=== PATIENT | male | born 1980 | race Caucasian/White ===

== ENCOUNTER 2024-02-20 16:21 | Emergency (ER) | payer BC, SELFPAY ==
[2024-02-20 16:40] VITALS: BP 151/89; PULSE 83; RESP 18; TEMP 37; O2SAT 99; BMI 29.1
--- NOTE | 2024-02-20 16:58 | XR_ITS ---
PROCEDURE INFORMATION: Exam: XR Left Foot Exam date and time: 02/20/2024 4:54 PM Age: 44 years old Clinical indication: Swelling, leg or foot; Additional info: Swollen TECHNIQUE: Imaging protocol: Radiologic exam of the left foot. Views: 3 or more views. COMPARISON: No relevant prior studies available. FINDINGS: Bones/joints: There is no evidence of acute fracture or dislocation. Joint spaces appear preserved. Calcaneal spurs are demonstrated at the origin of the plantar fascia. Mild osteoarthritic degenerative changes involve the intertarsal joints, the 1st MTP joint and the tibiotalar joint. Soft tissues: No significant soft tissue edema. No subcutaneous emphysema or radiopaque foreign bodies. IMPRESSION: 1. No acute posttraumatic osseous injury. 2. Multifocal mild osteoarthritic degenerative changes. 3. Calcaneal spurring.
--- NOTE | 2024-02-20 17:53 | ED_ITS ---
Discharge Plan Disposition Patient Disposition: Home, Self-Care Condition: Good Prescriptions Prescriptions: New ibuprofen 800 mg tablet 800 mg PO TID PRN (Reason: pain) Qty: 30 0RF Referrals Follow up/Referrals: Provider,Referral, MD [Primary Care Provider] - See instructions Activity Restrictions/Add. Instructions Additional Instructions/Restrictions: Follow up with primary care provider. If symptoms persist or worsen return to clinic or PCP. Clinical Impressions Clinical Impression: Osteoarthritis of foot, left Qualifiers: Osteoarthritis type: unspecified Qualified Code(s): M19.072 - Primary osteoarthritis, left ankle and foot Instructions Patient Instructions: DI for Foot Pain, How To Perform RICE (Rest, Ice, Compress, Elevate) Discharge ED Provider: Leah Cosme [facility] General Stated complaint: left foot pain, no accident Mode of Arrival: Ambulatory Source of Information: Patient Limitations: No Limitations Time Seen by Provider: 02/20/24 17:05 Description of Symptoms (Recalled from Triage Doc. by RN): Pt's symptoms are left foot pain and swollen since 02/16/2024. He stated that he wore tight shoes to try and lossen them. He stated that the swelling never went away and pain has gotten worse. HEENT Symptoms (Recalled from RN notes): No Resp Symptoms (Recalled from RN notes): No Skin Symptoms (Recalled from RN notes): No MS Symptoms (Recalled from RN notes): Yes Functional Status (Recalled from RN notes): n/a History of Present Illness Provider Complaint: Pt's symptoms are left foot pain and swollen since 02/16/2024. He stated that he wore tight shoes to try and loosen them. He stated that the swelling never went away and pain has gotten worse. Related Data Previous Rx's Medication Instructions Recorded ibuprofen 800 mg tablet 800 mg PO TID PRN pain #30 tabs 02/20/24 Allergies Allergy/AdvReac Type Severity Reaction Status Date / Time No Known Allergies Allergy Verified 02/20/24 17:10 Worker's Comp Is this a Worker's Comp case?: No [facility] Disclaimer: The information contained in this section may have been updated after the patient was seen, as this information can be updated by other users. Social History Smoking Status: Never smoker alcohol intake: current current occupational status: unemployed Travel in the last 8 weeks: Inside the [place] ROS Obtained: Yes All systems reviewed & no additional complaints except as documented Constitutional Constitutional: Reports system reviewed and no additional complaints, except as documented Eyes Eyes: Reports system reviewed and no additional complaints, except as documented ENT Ears, Nose, Mouth, and Throat: Reports system reviewed and no additional complaints, except as documented Cardiovascular Cardiovascular: Reports system reviewed and no additional complaints, except as documented Respiratory Respiratory: Reports system reviewed and no additional complaints, except as documented Gastrointestinal Gastrointestingal: Reports system reviewed and no additional complaints, except as documented Genitourinary Male Genitourinary: Reports system reviewed and no additional complaints, except as documented Musculoskeletal Musculoskeletal: Reports system reviewed and no additional complaints, except as documented, Reports abnormal gait, Reports arthralgias and Reports joint swelling Integumentary/Breasts Skin/Breast: Reports system reviewed and no additional complaints, except as documented Neurologic Neurologic: Reports system reviewed and no additional complaints, except as documented and Reports abnormal gait Endocrine Endocrine: Reports system reviewed and no additional complaints, except as documented Hematologic/Lymphatic Henatologic/Lymphatic: Reports system reviewed and no additional complaints, except as documented Allergic/Immunologic Allergic/Immunologic: Reports system reviewed and no additional complaints, except as documented Physical Exam General General appearance: alert and in no apparent distress Head Head exam: atraumatic and normocephalic Eye Eye exam: Present normal appearance ENT ENT exam: Present normal exam and normal oropharynx Neck Neck exam: Present normal inspection Chest Chest inspection: Present normal inspection and symmetric chest wall rise Respiratory Respiratory exam: Present normal lung sounds bilaterally Cardiovascular Cardiovascular exam: Present regular rate, normal rhythm and normal heart sounds Abdominal Exam Abdominal exam: Present normal bowel sounds Extremities Exam Extremities exam: Present tenderness, normal capillary refill, edema and joint swelling Expanded Lower Extremity Exam Left: Hip/Pelvis exam: Present normal inspection Upper leg exam: Present normal inspection Knee exam: Present normal inspection Lower leg exam: Present normal inspection Ankle exam: Present swelling Foot/toe exam: Present tenderness, swelling and calcaneal tenderness Neurovascular/Tendon exam: Present normal capillary refill Gait: observed and limited by pain Back Exam Back exam: Present normal inspection Neurological Exam Neurological exam: Present alert and oriented X3 Psychiatric Psychiatric exam: Present normal affect and normal mood Skin Skin exam: Present warm, dry and intact Lymphatic Lymphatic Findings: no adenopathy Medical Decision Making Mitch Inquiry Pt receiving controlled substance: No Mitch was queried for this patient: No Vital Signs: 02/20/24 16:40 Temperature 98.6 F Temperature Source Oral Pulse Rate [Right Radial] 83 Respiratory Rate 18 Blood Pressure [Right Arm] 151/89 H Blood Pressure Mean [Right Arm] 109 Blood Pressure Source [Right Arm] Automatic Cuff Blood Pressure Position [Right Arm] Sitting 02 Sat by Pulse Oximetry 99 Oxygen Delivery Method Room Air Orders (Tests/Meds): ORDERS Category Date Time Status Foot XR left minimum 3 views [XR foot LT min 3V] Stat Exams 02/20/24 16:58 Completed Radiology Data #1: Image(s): Foot/Toes Image Reviewed: Yes I reviewed the patient's radiology results and Yes I have reviewed radiologist's interpretation FINDINGS: Bones/joints: There is no evidence of acute fracture or dislocation. Joint spaces appear preserved. Calcaneal spurs are demonstrated at the origin of the plantar fascia. Mild osteoarthritic degenerative changes involve the intertarsal joints, the 1st MTP joint and the tibiotalar joint. Soft tissues: No significant soft tissue edema. No subcutaneous emphysema or radiopaque foreign bodies. IMPRESSION: 1. No acute posttraumatic osseous injury. 2. Multifocal mild osteoarthritic degenerative changes. 3. Calcaneal spurring.
[2024-02-20 18:16] VITALS: BP 151/89; PULSE 83; RESP 18; TEMP 36.7; O2SAT 99
== END 2024-02-20 18:16 | disposition home or self-care (01) ==
PROVIDERS: Emergency Provider Nurse Practitioner Family
DX: M19.072 Primary osteoarthritis, left ankle and foot (principal); M79.672 Pain in left foot
CPT/HCPCS: 73630; 99204; 99212; G0463

== ENCOUNTER 2024-05-08 12:49 | Outpatient (RCR) | payer BC, SELFPAY | END 2024-05-08 12:50 | disposition home or self-care (01) | LOC: OT 12:49 | PROVIDERS: Visit Provider Physical Medicine & Rehabilitation | DX: R10.2 Pelvic and perineal pain (principal); S32.89XA Fracture of other parts of pelvis, initial encounter for closed fracture; S32.401A Unspecified fracture of right acetabulum, initial encounter for closed fracture | CPT/HCPCS: 97165 ==

== ENCOUNTER 2024-05-11 13:49 | Emergency (ER) | payer BC, SELFPAY ==
[2024-05-11] VITALS (8 sets, daily range): BP systolic 121–144; BP diastolic 78–97; PULSE 70–95; RESP 16–18; TEMP 36.6–36.8; O2SAT 98–100; BMI 34.9
--- NOTE | 2024-05-11 14:25 | PC.NURSE ---
DR ALDRICH AT BEDSIDE
--- NOTE | 2024-05-11 15:08 | XR_ITS ---
FINAL REPORT CLINICAL HISTORY: Right lower leg pain COMPARISON: None FINDINGS: Two views of the right tibia/fibula were obtained. There is no acute fracture or dislocation. Mild degenerative changes are noted of the ankle. There is no soft tissue abnormality. IMPRESSION: No acute bony abnormality. Reviewed, Interpreted and Dictated by Benjamin Cisneros III, MD Transcribed by Maci Guerra Authenticated and [facility]
--- NOTE | 2024-05-11 15:08 | XR_ITS ---
FINAL REPORT CLINICAL HISTORY: Right knee pain COMPARISON: none FINDINGS: Two views of the right knee were obtained. There is no evidence of fracture or dislocation. The bony alignment is normal. The joint spaces are preserved. There is no evidence of joint effusion. No localized soft tissue abnormality is identified. IMPRESSION: No acute abnormality identified. Reviewed, Interpreted and Dictated by Benjamin Cisneros III, MD Transcribed by Maci Guerra Authenticated and [facility]
--- NOTE | 2024-05-11 15:08 | XR_ITS ---
FINAL REPORT CLINICAL HISTORY: fall/pain COMPARISON: None FINDINGS: Two views of the right femur were obtained. There is no acute fracture or dislocation. The joint spaces are well preserved. There is no acute soft tissue abnormality. IMPRESSION: No acute abnormality identified. Reviewed, Interpreted and Dictated by Benjamin Cisneros III, MD Transcribed by Maci Guerra Authenticated and [facility]
--- NOTE | 2024-05-11 15:08 | XR_ITS ---
FINAL REPORT CLINICAL HISTORY: fall/ right hip pain COMPARISON: None FINDINGS: RIGHT HIP Two views of the right hip with an AP view of the pelvis demonstrate no acute fracture or dislocation. There are postoperative changes in the right acetabulum. The joint spaces appear normal. The visualized bony structures are well aligned. No soft tissue abnormality is seen. IMPRESSION: No acute bony abnormality. Reviewed, Interpreted and Dictated by Benjamin Cisneros III, MD Transcribed by Maci Guerra Authenticated and [facility]
--- NOTE | 2024-05-11 15:08 | XR_ITS ---
FINAL REPORT CLINICAL HISTORY: Right ankle pain COMPARISON: None FINDINGS: Two views of the right ankle were obtained. There is no acute fracture or dislocation. There is mild degenerative change. Soft tissue swelling is noted. IMPRESSION: Soft tissue swelling without acute bony abnormality. Reviewed, Interpreted and Dictated by Benjamin Cisneros III, MD Transcribed by Maci Guerra Authenticated and [facility]
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
--- NOTE | 2024-05-11 15:13 | PC.NURSE ---
XR AT BEDSIDE
[2024-05-11] MEDS: OXYCODONE 5MG IMMEDIATE RELEASE TABLET 5 MG PO (15:19)
[2024-05-11] MEDS: METHOCARBAMOL 500MG TABLET 500 MG PO (15:19)
== END 2024-05-11 17:33 | disposition home or self-care (01) ==
PROVIDERS: Emergency Provider Emergency Medicine
DX: S70.01XA Contusion of right hip, initial encounter (principal); Z96.641 Presence of right artificial hip joint; W10.8XXA Fall (on) (from) other stairs and steps, initial encounter
CPT/HCPCS: 73502; 73552; 73560; 73590; 73600; 99284

== ENCOUNTER 2024-06-19 10:45 | Outpatient (CLI) | payer BC, SELFPAY ==
[2024-06-19 19:32] LABS: Direct LDL Cholesterol 135.58 mg/dL (100-129)
[2024-06-19 19:38] LABS: Albumin Level 4.4 g/dl (3.5-5.0); Albumin/Globulin Ratio 1.8 (1.1-1.8); Alkaline Phosphatase 62 U/L (38-126); Anion Gap 12.1 mEq/L (5-15); Bilirubin,Total 0.3 mg/dl (0.2-1.3); Blood Urea Nitrogen 13 mg/dl (9-20); Calcium 9.7 mg/dl (8.4-10.2); Carbon Dioxide 24 mmol/L (22.0-30.0); Chloride 108 mmol/L (98-107); Chol/HDL Ratio 7.2 (1-3.5); Cholesterol 223 mg/dl (140-200); Estimated Glomerular Filt Rate 148 ml/min (>60); GFR (African American) 179 ML/MIN (>60); Globulin 2.5 g/dL (1.3-3.2); Glucose 82 mg/dl (74-100); HDL Cholesterol 31 mg/dl (40-60); Potassium 4.1 mmoL/L (3.5-5.1); Sodium 140 mmol/L (136-145); Total Protein,Serum 6.9 g/dl (6.3-8.2); Triglycerides 185 mg/dl (30-150); Uric Acid 6.2 mg/dl (3.5-8.5); VLDL Cholesterol 37 mg/dL (0-40)
[2024-06-19 20:18] LABS: Alanine Aminotransferase 24 U/L (12-78); Aspartate Amino Transferase 25 U/L (17-59)
[2024-06-19 22:06] LABS: HIV (1&2) Antibody Rapid NONREACTIVE (NONREACTIVE)
== END 2024-06-19 23:59 | disposition home or self-care (01) ==
LOC: LAB.DROPOF 06-20 10:45
PROVIDERS: PCP Family Medicine; Visit Provider Family Medicine
DX: Z11.4 Encounter for screening for human immunodeficiency virus [HIV] (principal); R03.0 Elevated blood-pressure reading, without diagnosis of hypertension; Z11.59 Encounter for screening for other viral diseases; M10.9 Gout, unspecified
CPT/HCPCS: 80053; 80061; 84550; 87389; 87522

== ENCOUNTER 2024-08-21 14:00 | Outpatient (RCR) | payer BC, SELFPAY | END 2024-08-21 23:59 | disposition home or self-care (01) | LOC: PT 14:00 | PROVIDERS: Visit Provider Physical Medicine & Rehabilitation | DX: R10.2 Pelvic and perineal pain (principal); S32.401A Unspecified fracture of right acetabulum, initial encounter for closed fracture | CPT/HCPCS: 97110; 97112; 97116; 97163; 97164; 97530 ==

== ENCOUNTER 2024-09-18 12:39 | Outpatient (RCR) | payer MEDICAID, SELFPAY | END 2024-09-18 23:59 | disposition home or self-care (01) | LOC: PT 12:39 | PROVIDERS: Visit Provider Orthopaedic Surgery Orthopaedic Trauma | DX: M25.551 Pain in right hip (principal); S32.45 Transverse fracture of acetabulum; Z98.890 Other specified postprocedural states | CPT/HCPCS: 97163 ==

== ENCOUNTER 2024-10-16 13:00 | Outpatient (RCR) | payer MEDICAID, SELFPAY | END 2024-10-16 23:59 | disposition home or self-care (01) | LOC: PT 13:00 | PROVIDERS: Visit Provider Orthopaedic Surgery Orthopaedic Trauma | DX: Z98.890 Other specified postprocedural states (principal); S32.45 Transverse fracture of acetabulum | CPT/HCPCS: 97110; 97530 ==

== ENCOUNTER 2024-11-19 10:37 | Emergency (ER) | payer MEDICAID, SELFPAY ==
[2024-11-19] VITALS (11 sets, daily range): BP systolic 120–141; BP diastolic 53–82; PULSE 86–111; RESP 17–18; TEMP 30.4–35.6; O2SAT 96–100; BMI 33.2
--- NOTE | 2024-11-19 10:45 | ECG_ITS ---
APPROVED REPORT Exam: Resting ECG HR:86 bpm ECG Measurements Heart Rate 86 AXES LA 130 P 28 QRSd 125 QRS -28 QT 421 T 56 QTc 464 Conclusion SINUS RHYTHM PROBABLE LATERAL MYOCARDIAL INFARCTION , OF INDETERMINATE AGE [35 ms Q WAVE IN I/aVL/V5/V6] ABNORMAL ECG No STEMI Electronically signed by : CYNTHIA CARRANZA, 11/20/2024 03:47:21
[2024-11-19] MEDS: LACTATED RINGERS 1000ML 1,000 ML 999 ML IV ×2 (10:50→11:00)
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
--- NOTE | 2024-11-19 10:51 | CT_ITS ---
FINAL REPORT CLINICAL HISTORY: trauma, critical injury suspected, ams, possible fall? FINDINGS: CTA NECK Thin section axial CT with contrast with multiplanar reconstruction NASCET criteria and technique was utilized during interpretation. Aortic arch: Arch shows no significant narrowing. Great vessel origins are widely patent . Right carotid: No significant stenosis is seen of the cervical common or internal carotid artery . Left carotid: No significant stenosis is seen of the cervical common or internal carotid artery . Vertebrals: Evaluation of the left vertebral artery is limited by artifact. No significant stenosis is present of the visualized vertebral arteries. IMPRESSION: No significant stenosis or occlusion. Reviewed, Interpreted and Dictated by Rahda Bernal MD Transcribed by Paty Alas Authenticated and [facility]
--- NOTE | 2024-11-19 10:51 | CT_ITS ---
FINAL REPORT TECHNIQUE: Thin section axial images were obtained from skull base to vertex without contrast. Coronal and sagittal reconstruction images were obtained from the axial data. Exam was performed using dose reduction techniques such as automated exposure control, adjustment of the mA and kV according to patient size, and use of iterative reconstruction technique. CLINICAL HISTORY: trauma, critical injury suspected, was outside all night drinking alcohol in a field, ams COMPARISON: None FINDINGS: There is no mass effect or midline shift. There is no hydrocephalus. There is no intracranial hemorrhage. The posterior fossa is without acute abnormality. The basilar cisterns are preserved. The soft tissues are without acute abnormality. No acute osseous abnormality is identified. IMPRESSION: No acute intracranial abnormality. Reviewed, Interpreted and Dictated by Radha Bernal MD Transcribed by Jeanie Canela Authenticated and [facility]
--- NOTE | 2024-11-19 10:51 | CT_ITS ---
FINAL REPORT TECHNIQUE: Thin section axial images were obtained through the abdomen and pelvis after contrast injection per CT angiogram protocol. Multiplanar reconstruction images were obtained from the axial data. This exam was performed with techniques to keep radiation dose as low as reasonably achievable. This includes automated exposure control, adjustment of the MA and KVP, and iterative reconstruction technique. CLINICAL HISTORY: trauma, critical injury suspected FINDINGS: CTA: No abdominal aortic aneurysm or aortic dissection. The celiac axis, superior mesenteric artery, and inferior mesenteric artery are patent without stenosis. The renal arteries are patent. The common iliac arteries and visualized portions of the internal and external iliac arteries are patent. No significant stenosis. NONVASCULAR: The gallbladder is present. The solid abdominal organs are without acute abnormality. Stomach is distended with fluid. The GI tract is without acute abnormality. No lymphadenopathy or free fluid. A Ventura catheter is seen in the urinary bladder. The appendix is normal. No free air is identified. No acute osseous abnormality. IMPRESSION: No evidence of abdominal aortic aneurysm or dissection. No significant stenosis. No acute findings. Reviewed, Interpreted and Dictated by Radha Bernal MD Transcribed by Paty Alas Authenticated and [facility]
--- NOTE | 2024-11-19 10:51 | CT_ITS ---
FINAL REPORT TECHNIQUE: Thin section axial images were obtained through the lumbar spine without contrast. Sagittal and coronal reconstruction images were obtained from the axial data. Exam was performed using dose reduction techniques. This study was performed with techniques to keep radiation doses as low as reasonably achievable (ALARA). Individualized dose reduction techniques using automated exposure control or adjustment of mA and/or kV according to the patient's size were employed. CLINICAL HISTORY: trauma, critical injury suspected, possible fall?, ams COMPARISON: None FINDINGS: There is no acute fracture or acute malalignment of the lumbar spine. Vertebral body height is preserved. There is mild multilevel degenerative disease with disc space narrowing and osteophyte formation. There is no significant central stenosis. Paraspinal soft tissues are within normal limits. There is no paraspinal mass or fluid collection. IMPRESSION: No acute abnormality of the lumbar spine. Mild multilevel degenerative disease. Reviewed, Interpreted and Dictated by Radha Bernal MD Transcribed by Jeanie Canela Authenticated and [facility]
--- NOTE | 2024-11-19 10:51 | CT_ITS ---
FINAL REPORT TECHNIQUE: Axial imaging of the chest is obtained after the administration of contrast. 3-D MIP reformatted images were also obtained and reviewed per PE protocol. CLINICAL HISTORY: trauma, critical injury suspected, ams, possible fall?, hypothermia? FINDINGS: The pulmonary arteries are well filled. There is no evidence of pulmonary embolus. There is no aortic dissection. Heart size is normal. There is no mediastinal, hilar, or axillary lymphadenopathy. The lungs are clear. There is no pleural or pericardial effusion. No acute osseous abnormality. IMPRESSION: No evidence of pulmonary embolism or aortic dissection. Reviewed, Interpreted and Dictated by Radha Bernal MD Transcribed by Paty Alas Authenticated and [facility]
--- NOTE | 2024-11-19 10:51 | CT_ITS ---
FINAL REPORT TECHNIQUE: Axial imaging of the pelvis was obtained without contrast.This study was performed with techniques to keep radiation doses as low as reasonably achievable, (ALARA). Individualized dose reduction technique using automated exposure control or adjustment of mA and/or kV according to the patient's size were employed. CLINICAL HISTORY: trauma, critical injury suspected, ams, possible fall? COMPARISON: 05/11/2024 FINDINGS: There is no acute fracture or dislocation. There are postoperative changes of ORIF of the acetabulum. There is incomplete bony union of the acetabular fracture. Degenerative joint disease is seen of the right hip. Femoral heads are located bilaterally. Soft tissues demonstrate no acute abnormality. Sacral ala are intact. IMPRESSION: Postoperative changes of ORIF of the right acetabulum without acute bony abnormality. Reviewed, Interpreted and Dictated by Radha Bernal MD Transcribed by Paty Alas Authenticated and [facility]
--- NOTE | 2024-11-19 10:51 | CT_ITS ---
FINAL REPORT TECHNIQUE: Thin section axial images are obtained through the brain after intravenous contrast injection. Multiplanar reconstructions were obtained from the axial data. Exam was performed using dose reduction techniques such as automated exposure control, adjustment of the mA and kV according to patient size, and use of iterative reconstruction technique. CLINICAL HISTORY: trauma, critical injury suspected, ams, possible fall? FINDINGS: Exam is limited by motion artifact and poor contrast bolus. The intracerebral portions of the carotid arteries are patent. The anterior and middle cerebral arteries are patent. The posterior cerebral arteries arise from the basilar artery. They are patent. [place] is intact. The basilar artery is patent. The vertebral arteries are patent. There is no significant stenosis, aneurysm, or AVM. IMPRESSION: Unremarkable CT angiogram of the intracerebral vasculature. Reviewed, Interpreted and Dictated by Radha Bernal MD Transcribed by Paty Alas Authenticated and [facility]
--- NOTE | 2024-11-19 10:51 | CT_ITS ---
FINAL REPORT TECHNIQUE: Thin section axial images were obtained through the thoracic spine without contrast. Sagittal and coronal images were obtained from the axial data. This study was performed with techniques to keep radiation doses as low as reasonably achievable (ALARA). Individualized dose reduction techniques using automated exposure control or adjustment of mA and/or kV according to the patient's size were employed. CLINICAL HISTORY: trauma, critical injury suspected, possible fall?, hypothermia, ams COMPARISON: None FINDINGS: There is no acute fracture of the thoracic spine. There is no malalignment. Mild multilevel degenerative disease is noted with osteophyte formation and multilevel disc space narrowing. No acute paraspinal abnormality is identified. IMPRESSION: No acute osseous abnormality of the thoracic spine. Mild degenerative disc disease. Reviewed, Interpreted and Dictated by Radha Bernal MD Transcribed by Jeanie Canela Authenticated and [facility]
[2024-11-19 11:00] LABS: Basophils # 0.1 K/mm3 (0-0.2); Basophils % 0.5 % (0.1-2.0); Eosinophils % 0.1 % (0.1-12.0); Hematocrit 48.1 % (42.0-52.0); Hemoglobin 15.5 g/dL (14.1-18.0); Lymphocytes # 3.3 K/mm3 (0.7-4.5); Lymphocytes % 28.2 % (10-50); Mean Corpuscular HGB Conc 32.2 g/dL (31.8-35.4); Mean Corpuscular Hemoglobin 31.8 pg (27.0-31.2); Mean Corpuscular Volume 98.8 fl (80-94); Mean Platelet Volume 9.1 fl (7.4-10.4); Monocytes # 1.2 K/mm3 (0.1-1.0); Monocytes % 9.8 % (1.7-9.3); Neutrophils # 6.9 K/mm3 (1.8-7.8); Neutrophils % 58.1 % (37.0-80.0); Platelet Count 358 K/mm3 (142-424); Red Blood Count 4.87 M/mm3 (4.60-6.20); Red Cell Distribution Width 13.6 % (11.5-17.5); White Blood Count 11.9 K/mm3 (4.8-10.8)
[2024-11-19 11:02] LABS: VBG Base Excess -26.5 mmol/L (-2.4-2.3); VBG Oxygen Saturation 77.3 % (50-70); VBG PCO2 39.5 mmol/L (35-51); VBG PO2 66.9 mmol/L (28-40); VBG Total CO2 8.2 mmol/L (23-27)
[2024-11-19 11:02] LABS: Microscopic, Urine URINE MICROSCOPIC (MICROSCOPIC)
[2024-11-19 11:05] LABS: Lactate Venous 18.3 mmol/L (0.4-2.0); VBG PH 6.86 mmol/L (7.31-7.41)
[2024-11-19 11:13] LABS: Activated Partial Thrombo Time 32.3 seconds (22.8-30.6); INR 1.02 (0.9-1.1); Prothrombin Time 11.4 seconds (10.1-12.5)
--- NOTE | 2024-11-19 11:13 | PC.NURSE ---
SEIZURE PADS PLACED ON PT BED AT THIS TIME
[2024-11-19 11:15] LABS: Albumin Level 5.4 g/dl (3.5-5.0); Chloride 97 mmol/L (98-107); Potassium 4.1 mmoL/L (3.5-5.1); Sodium 142 mmol/L (136-145)
[2024-11-19 11:18] LABS: Alanine Aminotransferase 188 U/L (12-78); Albumin/Globulin Ratio 1.9 (1.1-1.8); Alkaline Phosphatase 157 U/L (38-126); Anion Gap 43.1 mEq/L (5-15); Aspartate Amino Transferase 235 U/L (17-59); Bilirubin,Total 0.7 mg/dl (0.2-1.3); Blood Urea Nitrogen 15 mg/dl (9-20); Estimated Glomerular Filt Rate 42 ml/min (>60); GFR (African American) 50 ML/MIN (>60); Globulin 2.8 g/dL (1.3-3.2); Total Protein,Serum 8.2 g/dl (6.3-8.2)
[2024-11-19 11:18] LABS: Appearance,Urine CLEAR (Clear); Bilirubin,Urine Negative (Negative); Blood, Urine LARGE (Negative); Color,Urine YELLOW (Yellow); Glucose,Urine (UA) Negative (Negative); Ketones,Urine 15 (Negative); Leukocyte Esterase,Urine Negative (Negative); Nitrate,Urine Negative (Negative); PH,Urine 5.5 (5.0-8.5); Protein,Urine >=300 (Negative); Urobilinogen,Urine 0.2 EU/dl (0.2)
[2024-11-19 11:19] LABS: Calcium 8.8 mg/dl (8.4-10.2); Glucose 147 mg/dl (74-100)
--- NOTE | 2024-11-19 11:22 | PC.NURSE ---
pt to ct
[2024-11-19 11:23] LABS: Magnesium 2.3 mg/dl (1.6-2.3)
--- NOTE | 2024-11-19 11:23 | HMH.EDGENADL ---
Discharge Plan Disposition Patient Disposition: Xfer Short-Term Hosp Condition: Fair Chief Complaint: Alcohol Prescriptions Prescriptions: No Action sennosides-docusate sodium 8.6-50 mg capsule 1 tab-cap PO BID PRN ibuprofen 600 mg tablet 600 mg PO Q6H PRN trazodone 50 mg tablet 25 mg PO DAILY acetaminophen [Tylenol Extra Strength] 500 mg tablet 1,000 mg PO Q6H PRN oxycodone 5 mg tablet 5 mg PO QHS 15 Days Qty: 15 0RF ibuprofen 800 mg tablet 800 mg PO TID PRN (Reason: pain) Qty: 30 0RF Referrals Follow up/Referrals: Nasir Leon MD [Primary Care Provider] - See instructions Clinical Impressions Clinical Impression: Acidosis, lactic, Hyperphosphatemia, Hypothermia, Alcohol abuse, Head injury, Frostbite, Rhabdomyolysis, TEDDY (acute kidney injury), Transaminitis, Hypocalcemia Print Language Print Language: Tajik Discharge ED Provider: Nevin Dalal General Adult HPI General Chief complaint: Alcohol Stated complaint: poss. 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 Patient reports that he was drinking yesterday/last night and was out in the field when he slipped and fell, hitting his head on a rock. He is not sure if he lost consciousness or not. He was unable to get up on his own and was down in the field all night. It was raining and cold. He has not had a drink of alcohol since last night and does have a history of alcohol withdrawals. Family states that they found him on the field and brought him in for further evaluation and management. They have given him a hot shower at home but the patient complained the water was too hot. They tried to make him drink hot liquids as well, but he was still very cold so they brought him in for evaluation. Patient complains of head pain where he hit his head, but he denies other complaints or concerns at this time. He is alert and oriented x 4 but is very very slow to respond. Related Data Home Medications ?Medication ?Instructions ?Recorded ?Confirmed acetaminophen 500 mg tablet 1,000 mg PO Q6H PRN 05/15/24 06/19/24 (Tylenol Extra Strength) ibuprofen 600 mg tablet 600 mg PO Q6H PRN 05/15/24 06/19/24 sennosides 8.6 mg-docusate sodium 1 tab-cap PO BID PRN 05/15/24 06/19/24 50 mg capsule trazodone 50 mg tablet 25 mg PO DAILY 05/15/24 06/19/24 Previous Rx's ?Medication ?Instructions ?Recorded ibuprofen 800 mg tablet 800 mg PO TID PRN pain #30 tabs 02/20/24 oxycodone 5 mg tablet 5 mg PO QHS pain 15 days #15 tabs 06/22/24 Allergies Allergy/AdvReac Type Severity Reaction Status Date / Time No Known Allergies Allergy Verified 06/19/24 14:07 [facility] Disclaimer: The information contained in this section may have been updated after the patient was seen, as this information can be updated by other users. Medical History Elevated blood pressure reading Gout Fracture of pelvis, closed Fracture acetabulum-closed Osteoarthritis of foot, left Fall Contusion of hip, right Social History Smoking Status: Never smoker alcohol intake: current current occupational status: unemployed Travel in the last 8 weeks: Inside the [place] Have you lived/traveled outside US in past 30 days?: No Contact w/someone who lives/traveled outside US past 30 days?: No Exposure to someone with infectious disease in past 14 days?: No Do you have a fever (greater than 100.4 F or 38 C)?: No Have you tested positive for COVID-19: No Exposed to someone with COVID-19 in past 14 days?: No Do you have a sore throat?: No Do you have a cough?: No Do you have any weakness?: No Do you have any diarrhea?: No Are you experiencing any unusual bleeding?: No Do you have any muscle aches/pain?: No Do you have any abdominal pain?: No Are you experiencing loss of taste or smell?: No ROS Obtained: Yes All systems reviewed & no additional complaints except as documented Physical Exam General General appearance: alert and obese Comment: Ill-appearing, very cold Head Head exam: atraumatic and normocephalic Eye Eye exam: Present normal appearance, PERRL and EOMI ENT ENT exam: Present mucous membranes dry and normal external ear exam Neck Neck exam: Present normal inspection, full ROM and trachea midline; Absent tenderness Chest Chest inspection: Present normal inspection and symmetric chest wall rise; Absent tenderness Respiratory Respiratory exam: Present normal lung sounds bilaterally; Absent respiratory distress, wheezes, stridor or accessory muscle use Cardiovascular Cardiovascular exam: Present regular rate and normal rhythm Abdominal Exam Abdominal exam: Present soft; Absent distention, tenderness or guarding Extremities Exam Extremities exam: Present full ROM and other (Extremely cold hands and feet, especially the feet. The feet are purple and discolored. No blistering noted. He has delayed capillary refill.); Absent tenderness, normal capillary refill or edema Back Exam Back exam: Present normal inspection and full ROM; Absent tenderness Neurological Exam Neurological exam: Present alert, oriented X3, CN II-XII intact and other (Generally weak without focal neurologic deficit); Absent motor sensory deficit Psychiatric Psychiatric exam: Present flat affect Skin Skin exam: Present pallor and other (Cold, pale, peripheral cyanosis) Medical Decision Making Medical Records Medical records reviewed: Yes I reviewed the patient's medical records. Screening: Per USPSTF and CDC recommendations, given the prevalence of disease in our region, it is our hospital?s policy to screen for HIV and viral Hepatitis for all patients aged 18 and over and those with ongoing risk factors. Mitch Inquiry Pt receiving controlled substance: No Vital Signs: 11/19/24 11:21 11/19/24 12:01 11/19/24 12:31 Temperature 86.7 F L 91.2 F L Temperature Source Core Pulse Rate 89 93 H Pulse Rate [Left] 86 Respiratory Rate 17 Blood Pressure 120/53 L 120/55 L Blood Pressure [Right Arm] 126/72 Blood Pressure Mean 80 Blood Pressure Mean [Right Arm] 90 Blood Pressure Source [Right Arm] Automatic Cuff Blood Pressure Position [Right Arm] Sitting 02 Sat by Pulse Oximetry 98 100 98 Oxygen Delivery Method Room Air Room Air 11/19/24 13:00 11/19/24 13:30 Temperature 92.3 F L 93.2 F L Temperature Source Pulse Rate 104 H 97 H Pulse Rate [Left] Respiratory Rate Blood Pressure 125/68 126/71 Blood Pressure [Right Arm] Blood Pressure Mean Blood Pressure Mean [Right Arm] Blood Pressure Source [Right Arm] Blood Pressure Position [Right Arm] 02 Sat by Pulse Oximetry 99 99 Oxygen Delivery Method Room Air Room Air Lab Data Lab results reviewed: Yes I reviewed the patient's lab results. Lab Results 11/19/24 10:45: WBC 11.9 H, RBC 4.87, Hgb 15.5, Hct 48.1, MCV 98.8 H, MCH 31.8 H, MCHC 32.2, RDW 13.6, Plt Count 358, MPV 9.1, Neut % (Auto) 58.1, Lymph % (Auto) 28.2, Clinch % (Auto) 9.8 H, Eos % (Auto) 0.1, Baso % (Auto) 0.5, Neut # (Auto) 6.9, Lymph # (Auto) 3.3, Clinch # (Auto) 1.2 H, Eos # (Auto) 0.0, Baso # (Auto) 0.1, PT 11.4, INR 1.02, APTT 32.3 H, Sodium 142, Potassium 4.1, Chloride 97 L, Carbon Dioxide 6 L*, Anion Gap 43.1 H, BUN 15, Creatinine 1.80 H, Estimated GFR 42 L, Est GFR ( Amer) 50 L, Glucose 147 H, Calcium 8.8, Phosphorus 10.0 H, Magnesium 2.3, Total Bilirubin 0.7, AST 235 H, ALT 188 H, Alkaline Phosphatase 157 H, Total Creatine Kinase 7439 H*, Troponin I < 0.01, Total Protein 8.2, Albumin 5.4 H, Globulin 2.8, Albumin/Globulin Ratio 1.9 H, TSH 1.11, Thyroxine (T4) 5.2 L, Plasma/Serum Alcohol 270 H, HCV Ab CHANG w/Rflx PCR Qn Negative 11/19/24 10:51: VBG pH 6.86 L, VBG pCO2 39.5, VBG pO2 66.9 H, VBG HCO3 7.0 L, VBG Total CO2 8.2 L, VBG O2 Saturation 77.3 H, VBG Base Excess -26.5 L, VBG Lactic Acid 18.3 H 11/19/24 10:58: Urine Color Yellow, Urine Appearance Clear, Urine pH 5.5, Ur Specific [place] 1.020, Urine Protein >=300, Urine Glucose (UA) Negative, Urine Ketones 15, Urine Blood Large, Urine Nitrate Negative, Urine Bilirubin Negative, Urine Urobilinogen 0.2, Ur Leukocyte Esterase Negative, Urine RBC 5-10, Urine WBC Occasional, Ur Squamous Epith Cells 3-5, Amorphous Sediment 2+, Urine Bacteria 2+, Urine Opiates Screen Negative, Urine Methadone Screen Negative, Ur Barbituates Screen Negative, Ur Phencyclidine Scrn Negative, Ur Amphetamines Screen Negative, U Benzodiazepines Scrn Negative, Urine Cocaine Screen Negative, U Marijuana (THC) Screen Negative 11/19/24 12:53: VBG pH 6.91 L, VBG pCO2 37.5, VBG pO2 62.3 H, VBG HCO3 7.3 L, VBG Total CO2 8.4 L, VBG O2 Saturation 76.7 H, VBG Base Excess -25.5 L, VBG Lactic Acid 13.0 H 11/19/24 13:26: Sodium 135 L, Potassium 5.0 D, Chloride 101, Carbon Dioxide < 5 L* D, Anion Gap 34.0 H, BUN 14, Creatinine 1.30 H D, Estimated Creat Clear 130, Estimated GFR 61, Est GFR ( Amer) 73 D, Glucose 106 H D, Calcium 8.0 L, Total Bilirubin 0.5, AST 280 H, ALT 161 H, Alkaline Phosphatase 113, Troponin I 0.01, Total Protein 6.4, Albumin 4.4 D, Globulin 2.0, Albumin/Globulin Ratio 2.2 H 11/19/24 10:45 11/19/24 13:26 Orders (Tests/Meds): ED MEDICATIONS Generic Name Dose Route Start Last Admin Trade Name David PRN Reason Stop Dose Admin Diazepam 10 mg 11/19/24 10:53 Diazepam 10mg/2ml Syringe IV 12/19/24 10:52 Q1HP PRN CIWA >16 Diazepam 5 mg 11/19/24 10:53 Diazepam 10mg/2ml Syringe IV 12/19/24 10:52 Q1HP PRN CIWA Score 8-15 Diazepam 5 mg 11/19/24 10:53 Diazepam 5mg Tablet PO 12/19/24 10:52 Q6HP PRN CIWA 2-7 Folic Acid 1 mg 11/20/24 09:00 Folic Acid 1mg Tablet PO 12/20/24 08:59 DAILY ARMEN Sodium Chloride 1,000 mls @ 200 mls/hr 11/19/24 12:00 11/19/24 12:33 Sod Chlor 0.9% 1000ml Bag IV 12/19/24 11:59 200 mls/hr .Q5H ARMEN Administration Sodium Bicarbonate 150 meq/ 1,150 mls @ 200 mls/hr 11/19/24 13:07 11/19/24 13:29 Dextrose IV 12/19/24 13:06 200 mls/hr .Q5H45M ARMEN Administration Multivitamins 1 each 11/19/24 17:00 Multivitamin Tablet PO 12/19/24 16:59 1700 ARMEN Sodium Chloride 10 ml 11/19/24 11:01 Sodium Chloride 0.9% 10ml Vial IV 12/19/24 11:00 NEEDED PRN to Dilute Lorazepam inj Sodium Chloride 10 ml 11/19/24 11:37 11/19/24 11:38 Sodium Chloride 0.9% 10ml Syr (Rad Only) IV 12/19/24 11:36 10 ml NEEDED PRN Administration Maintain IV Site Thiamine HCl 100 mg 11/20/24 09:00 Thiamine 100mg Tablet PO 11/22/24 09:01 DAILY ARMEN Discontinued Medications Generic Name Dose Route Start Last Admin Trade Name Freq PRN Reason Stop Dose Admin Lactated Ringer's 1,000 mls @ 999 mls/hr 11/19/24 10:51 11/19/24 10:50 Lactated Ringer's 1000 Ml Bag IV 11/19/24 11:51 999 mls/hr .Q1H1M ONE Administration Lactated Ringer's 1,000 mls @ 999 mls/hr 11/19/24 11:05 11/19/24 11:00 Lactated Ringer's 1000 Ml Bag IV 11/19/24 12:05 999 mls/hr .Q1H1M ONE Administration Sodium Chloride 1,000 mls @ 999 mls/hr 11/19/24 12:31 11/19/24 12:53 Sod Chlor 0.9% 1000ml Bag IV 11/19/24 13:31 999 mls/hr .Q1H1M ONE Administration Sodium Chloride 1,000 mls @ 999 mls/hr 11/19/24 13:14 11/19/24 14:17 Sod Chlor 0.9% 1000ml Bag IV 11/19/24 14:14 999 mls/hr .Q1H1M ONE Administration Iopamidol 160 ml 11/19/24 11:37 11/19/24 11:38 Iopamidol-370 (76%);100ml Bottle IV 11/19/24 11:38 160 ml ONCE ONE Administration Lorazepam 2 mg 11/19/24 11:01 11/19/24 12:34 Lorazepam 2mg/Ml Vial IV 11/19/24 11:02 2 mg ONCE ONE Administration Morphine Sulfate 4 mg 11/19/24 12:07 11/19/24 12:33 Morphine 4mg/Ml Syringe IV 11/19/24 12:08 4 mg ONCE ONE Administration Morphine Sulfate 4 mg 11/19/24 12:30 11/19/24 12:53 Morphine 4mg/Ml Syringe IV 11/19/24 12:31 4 mg ONCE ONE Administration Ondansetron HCl 4 mg 11/19/24 12:07 11/19/24 12:33 Ondansetron 4mg/2ml Vial IV 11/19/24 12:08 4 mg ONCE ONE Administration Sodium Chloride 100 ml 11/19/24 11:37 11/19/24 11:38 0.9 % Sodium Chloride 50 Ml Vial IV 11/19/24 11:38 100 ml ONCE ONE Administration ORDERS Category Date Time Status CT angio abd/pel - TRAUMA Stat Cat Scan 11/19/24 10:[address] angio chest - dissection Stat Cat Scan 11/19/24 10:[address] angio head Stat Cat Scan 11/19/24 10:[address] angio neck Stat Cat Scan 11/19/24 10:[address] bony pelvis Stat Cat Scan 11/19/24 10:[address] cervical spine wo con Stat Cat Scan 11/19/24 10:[address] head/brain wo con Stat Cat Scan 11/19/24 10:[address] lumbar spine wo con Stat Cat Scan 11/19/24 10:[address] thoracic spine wo con Stat Cat Scan 11/19/24 10:51 Completed Consult Rotary Planer Set Up Operator [CONS] Routine Cons 11/19/24 12:26 Active Consult Rotary Planer Set Up Operator [CONS] Routine Cons 11/19/24 12:45 Active CBC w/Auto Diff [Complete Blood Count Auto Diff] Stat Lab 11/19/24 10:45 Completed CK [Creatine Kinase] Stat Lab 11/19/24 10:45 Completed CK [Creatine Kinase] Stat Lab 11/19/24 13:26 Results CMP [Comprehensive Metabolic Panel] Stat Lab 11/19/24 10:45 Completed CMP [Comprehensive Metabolic Panel] Stat Lab 11/19/24 13:26 Results Ethyl Alcohol Stat Lab 11/19/24 10:45 Completed Hepatitis C Ab Qual. W/ RFX Stat Lab 11/19/24 10:45 Completed Magnesium Routine Lab 11/19/24 10:45 Completed PT INR [Prothrombin Time INR] Stat Lab 11/19/24 10:45 Completed PTT [Activated Partial Thrombo Time] Stat Lab 11/19/24 10:45 Completed Phosphorous Routine Lab 11/19/24 10:45 Completed Rapid PCR Covid and Flu A/B Stat Lab 11/19/24 10:52 Received T4 (Thyroxine) Stat Lab 11/19/24 10:45 Completed TSH [Thyroid Stimulating Hormone] Stat Lab 11/19/24 10:45 Completed Trop I [Troponin I] Stat Lab 11/19/24 10:45 Completed Troponin I Q3H Lab 11/19/24 13:26 Completed Troponin I Q3H Lab 11/19/24 17:00 Ordered UA [Urinalysis and Microscopic] Stat Lab 11/19/24 10:58 Completed UDS [Drug Screen,Urine] Stat Lab 11/19/24 10:58 Completed Blood Culture Stat Micro 11/19/24 10:50 Received Urine Culture Stat Micro 11/19/24 10:58 Received VBG [Venous Blood Gas] Stat RT 11/19/24 10:51 Completed VBG [Venous Blood Gas] Stat RT 11/19/24 12:53 Completed ECG Data Tracing #1: I reviewed this ECG and interpreted as documented below: Normal sinus rhythm with a ventricular of 86 bpm. Artifact degrades study. No acute STEMI. Normal intervals ECG initial impression date: 11/19/24 ECG initial impression time: 10:47 Medical Decision Narrative: In summary, this patient is a 44-year-old male presenting to the Emergency Department for evaluation after being found down in the field by his family. He was out there all night in the cold and rain after falling while drunk and hitting his head. Differential diagnoses considered include but are not limited to head trauma, spine trauma, hypothermia, rhabdomyolysis, renal failure, frostbite. Ruling out the most morbid conditions drove assessment. It should be noted patient's history includes obesity, alcohol abuse which are not at goal therapy. This complicates all aspects of care by increasing patient's risk for morbidity. On exam, the patient is very ill-appearing. He is very cold, pale, has peripheral cyanosis especially in his feet. No blistering of his feet, no eschar, no erythema, but they are very cold and cyanotic. He has absent capillary refill of his feet. He also has some cyanosis and abrasions to his bilateral knees, otherwise head to toe trauma exam is reassuring. No tight compartments appreciated. Rectal temp is 88 degrees. Vitals are otherwise surprisingly normal on cardiac telemetry, and he is alert and oriented x 4. He is generally weak without focal neurologic deficit. Workup included broad lab evaluation including VBG, lactic acid, CK, blood cultures. Patient was placed on CIWA protocol. He is not scoring very high but does have a history of daily alcohol abuse and alcohol withdrawals, I am concerned that his hypothermia and current presentation is potentially falsely lowering his CIWA. He was given 2 mg of IV Ativan just to be on the safe side. He was placed on a Parul hugger for rewarming, and we initiated rapid rewarming of the cold bilateral feet. We placed distilled water infused K pads around his feet for warming. We rapidly initiated fluid resuscitation with 2L of warm LR. I elected to obtain full head to toe trauma scans given fall while intoxicated and inability to get up, concerned patient's presentation obscures reliable history. Temp sensing Ventura catheter was placed. Labs were obtained that demonstrated profound metabolic acidosis with a pH of 6.86 and a lactic acid of greater 18.3, anion gap 43. Patient has a profoundly elevated CK at greater than 7000, TEDDY with a creatinine of 1.8. He has transaminitis with liver enzymes in the 100-200s. INR is normal. He has hyperphosphatemia with a phosphorus of 10. Ethanol level is 270. CBC demonstrates very mild leukocytosis but otherwise is reassuring. I independently interpreted CT scans prior to the radiologist read and noted no obvious acute traumatic injury, such as fracture or intracranial hemorrhage. Please see their read for final interpretation. On reassessments, patient complained of significant pain in his lower extremities after rewarming of his feet, for which he was given IV morphine and zofran. His feet are now warm and well-perfused with improved capillary refill, but his great toe on the left foot is still dusky. Patient's feet are being kept warm. He remains on a Parul hugger, which he has been on throughout his entire ED stay. Temperature as of 1330 is now 92.3. Patient has received 3 L of IV fluids so far with the fourth liter running in as of 1330. I have also ordered maintenance to continue at 200 mL/hr after this. Despite being in the ER 2 hours and 45 minutes, he has only made 250 mL of urine. I did send repeat blood gas which demonstrated a pH of 6.91 and a lactic acid of 12.95 as of 1pm. Given persistent profound acidosis despite fluid resuscitation, patient was started on a bicarb drip at 200 mL an hour. He remains hemodynamically stable at this time with normal blood pressure, there is now mildly tachycardic in the low 100s noted on cardiac telemetry. O2 saturation is normal on room air. Patient remains critically ill with severe metabolic acidosis in the setting of rhabdomyolysis, TEDDY, profound hypothermia. I feel he would benefit from admission to ICU for further resuscitation and management. I had an interactive discussion with Dr. Aaron the hospitalist who advised he felt he would benefit from transfer to higher level of care in case he ends up needing dialysis. Given this, I started calling other hospitals around the area. - Waitlisted for MICU bed per Vanda Pack NP in transfer center after interactive discussion [facility] beds, unable to accept patient for transfer [facility] beds, 6 ICU boarders in ER waiting, unable to accept patient for transfer [facility] ICU beds currently Called back at 1420 and advised an ICU bed became available. Patient was graciously accepted by Vanda Pack NP. Report was called, EMS transport was arranged. Patient was transported in fair condition with stable vitals on cardiac telemetry, A&O x 4, GCS 15. Prior to transfer, repeat CMP obtained showing improvement in anion gap, but CO2 still critically low. Creatinine improved to 1.30. Calcium now down to 8, IV calcium repletion ordered 2g IV. Interventions here included: 2mg IV ativan, 4L bolus crystalloid followed by crystalloid 200 mL/hr, 4 mg IV morphine, 4 mg IV zofran, active rewarming, 2 g IV calcium, bicarbonate drip Critical Care Critical Care Time Critical Care Time: Yes Attestation: On 11/19/24, the high probability of a clinically significant, sudden or life threatening deterioration of the following system(s) required my full and direct attention, intervention and personal management. The time I documented below is in addition to time spent performing reported procedures but includes the following listed in this critical care notation. Total Time Total Critical Care Time: 75
[2024-11-19 11:31] LABS: Carbon Dioxide 6 mmol/L (22.0-30.0); Troponin I < 0.01 ng/ml (0.00-0.034)
[2024-11-19 11:35] LABS: T4 (Thyroxine) 5.2 ug/dl (5.53-11.0)
[2024-11-19 11:35] LABS: Opiate Screen,Urine Negative ng/ml (<300)
[2024-11-19 11:36] LABS: Phencyclidine Screen,Urine Negative ng/ml (<25)
[2024-11-19] MEDS: IOPAMIDOL-370 (76%);100ML BOTTLE 160 ML IV (11:38)
[2024-11-19] MEDS: 0.9 % SODIUM CHLORIDE 50 ML VIAL 100 ML IV (11:38)
[2024-11-19] MEDS: SODIUM CHLORIDE 0.9% 10ML SYR (RAD ONLY) 10 ML IV (11:38)
[2024-11-19 11:39] LABS: Amphetamine/Metha Screen,Urine Negative ng/ml (<1000)
[2024-11-19 11:40] LABS: Barbiturates Screen,Urine Negative ng/ml (<200); Benzodiazepines Screen,Urine Negative ng/ml (<200)
--- NOTE | 2024-11-19 11:40 | HMH.ITSTN ---
GFR completion/results were overrode for the use of contrast media by the Physician on a risk vs. benefit situation with this patient.
[2024-11-19 11:42] LABS: Cocaine Screen,Urine Negative ng/ml (<300)
[2024-11-19 11:43] LABS: Cannabinoid Screen,Urine Negative ng/ml (<50)
[2024-11-19 11:46] LABS: Ethyl Alcohol 270 mg/dl (0-10)
[2024-11-19 11:48] LABS: Thyroid Stimulating Hormone 1.11 uIU/mL (0.465-4.68)
[2024-11-19 11:49] LABS: Methadone Screen,Urine Negative ng/ml (<300)
[2024-11-19 11:49] LABS: Creatine Kinase 7439 U/L (55-170)
[2024-11-19 11:56] LABS: Amorphous Sediment,Urine 2+ /lpf; Bacteria,Urine 2+ /lpf; WBC,Urine Occasional #/hpf (0-3)
[2024-11-19 12:20] LABS: Coronavirus 19, PCR Not Detected (NotDetected); Influenza A, PCR Not Detected (NotDetected); Influenza B, PCR Not Detected (NotDetected)
--- NOTE | 2024-11-19 12:28 | PC.NURSE ---
Dr Dalal at bedside
[2024-11-19] MEDS: 0.9 % SODIUM CHLORIDE 1000ML 1,000 ML 200 ML IV (12:33)
[2024-11-19] MEDS: ONDANSETRON 4MG/2ML VIAL 4 MG IV (12:33)
[2024-11-19] MEDS: MORPHINE 4MG/ML SYRINGE 4 MG IV ×2 (12:33→12:53)
[2024-11-19] MEDS: LORazepam 2MG/ML VIAL 2 MG IV (12:34)
[2024-11-19] MEDS: 0.9 % SODIUM CHLORIDE 1000ML 1,000 ML 999 ML IV ×2 (12:53→14:17)
--- NOTE | 2024-11-19 12:55 | PC.NURSE ---
Called [facility] to notify of VBG order and blood in lab
[2024-11-19 12:56] LABS: Hepatitis C Ab Qual. W/ RFX NEGATIVE (Negative)
[2024-11-19 12:59] LABS: VBG Base Excess -25.5 mmol/L (-2.4-2.3); VBG HCO3 7.3 mmol/L (23-30); VBG Oxygen Saturation 76.7 % (50-70); VBG PCO2 37.5 mmol/L (35-51); VBG PO2 62.3 mmol/L (28-40); VBG Total CO2 8.4 mmol/L (23-27)
[2024-11-19 13:01] LABS: VBG PH 6.91 mmol/L (7.31-7.41)
--- NOTE | 2024-11-19 13:06 | PC.NURSE ---
Dr Dalal notified of critical re-peat VBG results.
--- NOTE | 2024-11-19 13:07 | PC.NURSE ---
Dr Dalal is s/w Dr Aaron regarding possible admission.
--- NOTE | 2024-11-19 13:08 | PC.NURSE ---
I spoke to [facility] in pharmacy, they are currently making the bicarb drip.
[2024-11-19] MEDS: SODIUM BICARBONATE 150 MEQ in DEXTROSE 5 % IN WATER 1,000 ML 200 MEQ IV (13:29)
--- NOTE | 2024-11-19 13:30 | PC.NURSE ---
Called [facility] per Dr Dalal about this pt. [facility] declined
--- NOTE | 2024-11-19 13:31 | PC.NURSE ---
Called [facility] to see about getting this pt transferred to them advised they were at capacity and did not have any beds
--- NOTE | 2024-11-19 13:32 | PC.NURSE ---
Called [facility] to see about getting this pt transferred to them and they advised that they had no beds and asked what kind of bed we needed. Advised them we would need in ICU bed. [facility] advised that they had 4 waiting for ICU beds in there ER.
--- NOTE | 2024-11-19 13:39 | PC.NURSE ---
Called [facility] to see about getting this pt transferred to there facility due to needing Nephrology. [facility] has me on hold while they try to connect with [facility].
[2024-11-19 13:56] LABS: Albumin Level 4.4 g/dl (3.5-5.0); Chloride 101 mmol/L (98-107)
[2024-11-19 13:57] LABS: Sodium 135 mmol/L (136-145)
[2024-11-19 13:59] LABS: Alanine Aminotransferase 161 U/L (12-78); Aspartate Amino Transferase 280 U/L (17-59); Blood Urea Nitrogen 14 mg/dl (9-20); Creatinine Clearance Estimated 130 mL/min (50-200); Estimated Glomerular Filt Rate 61 ml/min (>60); GFR (African American) 73 ML/MIN (>60)
[2024-11-19 14:00] LABS: Albumin/Globulin Ratio 2.2 (1.1-1.8); Alkaline Phosphatase 113 U/L (38-126); Bilirubin,Total 0.5 mg/dl (0.2-1.3); Glucose 106 mg/dl (74-100); Total Protein,Serum 6.4 g/dl (6.3-8.2)
[2024-11-19 14:01] LABS: Carbon Dioxide < 5 mmol/L (22.0-30.0)
--- NOTE | 2024-11-19 14:02 | PC.NURSE ---
[facility] transfer center advised that [facility] didnt have a bed right now until they have a discharge in the ICU so we are waiting for a callback when they discharge a pt pt
[2024-11-19 14:15] LABS: Troponin I 0.01 ng/ml (0.00-0.034)
--- NOTE | 2024-11-19 14:18 | PC.NURSE ---
Called [facility] back and advised them that had a bed open up and that we could be taken off the waitlist at own
[2024-11-19] MEDS: CALCIUM GLUC IN NACL, ISO-OSM 2 GM/100 ML BAG IV (14:26)
--- NOTE | 2024-11-19 14:43 | PC.NURSE ---
Report called to Mina YOUNG at
--- NOTE | 2024-11-19 14:53 | PC.NURSE ---
[facility] with [employer] at bedside for report.
--- NOTE | 2024-11-19 14:59 | PC.NURSE ---
Pt's father updated with POC and transfer. Pt gave his license to father. Father also states he has pt's wallet. Father given [facility] information and room assignment.
[2024-11-19 15:04] LABS: Reflex Lactic Add Lactic Reflex
[2024-11-19 15:04] LABS: Creatine Kinase 13903 U/L (55-170)
--- NOTE | 2024-11-26 11:26 | PEERSUPPORT ---
Peer Support Note Patient Information Patient Information: DOS: 11/19/2024 ? Reason: ETOH ED Ps Consult ? Pt stated he had slipped and fell, hit his head and guessed he was knocked unconscious. ? Pt was still being medically stabilized, at this time not able to have a meaningful conversation. ? Ps offered services ongoing for support, pt agrees.? ? Ps provides contact card to father. ? Pt is being transferred to for higher level of care. ?
== END 2024-11-19 15:09 | disposition short-term general hospital (02) ==
PROVIDERS: Emergency Provider Emergency Medicine; PCP Family Medicine
DX: E83.51 Hypocalcemia (principal); R74.01 Elevation of levels of liver transaminase levels; N17.9 Acute kidney failure, unspecified; M62.82 Rhabdomyolysis; T33.90XA Superficial frostbite of unspecified sites, initial encounter; S09.90XA Unspecified injury of head, initial encounter; F10.10 Alcohol abuse, uncomplicated; T68.XXXA Hypothermia, initial encounter; E83.39 Other disorders of phosphorus metabolism; E87.20 Acidosis, unspecified; R51.9 Headache, unspecified; M79.604 Pain in right leg; M79.605 Pain in left leg; W01.198A Fall on same level from slipping, tripping and stumbling with subsequent striking against other object, initial encounter; Y93.89 Activity, other specified; Y92.89 Other specified places as the place of occurrence of the external cause; Y90.8 Blood alcohol level of 240 mg/100 ml or more
CPT/HCPCS: 70450; 70496; 70498; 71275; 72125; 72128; 72131; 72192; 74174; 80053; 80307; 80320; 81001; 82550; 82803; 83735; 84100; 84436; 84443; 84484; 85025; 85610; 85730; 86803; 87040; 87086; 87636; 93005; 96361; 96365; 96366; 96374; 96375; 96376; 99291; J2060; J2270; J2405; J7030; J7060; J7120; Q9967

== ENCOUNTER 2024-12-10 10:03 | Outpatient (CLI) | payer MEDICAID, SELFPAY ==
[2024-12-10 19:53] LABS: Albumin Level 4.3 g/dl (3.5-5.0); Chloride 99 mmol/L (98-107); Sodium 137 mmol/L (136-145)
[2024-12-10 19:54] LABS: Potassium 3.3 mmoL/L (3.5-5.1)
[2024-12-10 19:56] LABS: Alanine Aminotransferase 37 U/L (12-78); Alkaline Phosphatase 84 U/L (38-126); Anion Gap 15.3 mEq/L (5-15); Aspartate Amino Transferase 51 U/L (17-59); Bilirubin,Total 0.5 mg/dl (0.2-1.3); Blood Urea Nitrogen 4 mg/dl (9-20); Carbon Dioxide 26 mmol/L (22.0-30.0); Estimated Glomerular Filt Rate 182 ml/min (>60); GFR (African American) 221 ML/MIN (>60)
[2024-12-10 19:57] LABS: Albumin/Globulin Ratio 1.5 (1.1-1.8); Calcium 9.1 mg/dl (8.4-10.2); Creatine Kinase 102 U/L (55-170); Globulin 2.9 g/dL (1.3-3.2); Glucose 83 mg/dl (74-100); Total Protein,Serum 7.2 g/dl (6.3-8.2)
== END 2024-12-10 23:59 | disposition home or self-care (01) ==
LOC: LAB.DROPOF 12-11 14:21
PROVIDERS: PCP Family Medicine; Visit Provider Family Medicine
DX: R79.89 Other specified abnormal findings of blood chemistry (principal); M79.10 Myalgia, unspecified site
CPT/HCPCS: 80053; 82550

== ENCOUNTER 2024-12-14 18:07 | Outpatient (CLI) | payer MEDICAID, SELFPAY ==
[2024-12-14 18:40] LABS: Chloride 109 mmol/L (98-107)
[2024-12-14 18:41] LABS: Sodium 141 mmol/L (136-145)
[2024-12-14 18:44] LABS: Blood Urea Nitrogen 7 mg/dl (9-20); Calcium 9.2 mg/dl (8.4-10.2); Carbon Dioxide 23 mmol/L (22.0-30.0); Estimated Glomerular Filt Rate 148 ml/min (>60); GFR (African American) 179 ML/MIN (>60); Glucose 97 mg/dl (74-100)
== END 2024-12-14 23:59 | disposition home or self-care (01) ==
LOC: LAB 18:09
PROVIDERS: PCP Family Medicine; Visit Provider Family Medicine
DX: E87.6 Hypokalemia (principal)
CPT/HCPCS: 36415; 80048

== ENCOUNTER 2024-12-20 12:17 | Outpatient (RCR) | payer MEDICAID, SELFPAY ==
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
== END 2024-12-20 23:59 | disposition home or self-care (01) ==
LOC: PT 12:17
PROVIDERS: PCP Family Medicine; Visit Provider Family Medicine
DX: S83.422A Sprain of lateral collateral ligament of left knee, initial encounter (principal); G62.9 Polyneuropathy, unspecified
CPT/HCPCS: 97163

== ENCOUNTER 2025-01-22 15:00 | Outpatient (RCR) | payer MEDICAID, SELFPAY ==
--- NOTE | 2025-01-22 16:24 | HMH.RHREAS ---
Rehab Reassessment Rehab OP Re-assessment Start: 01/16/25 12:57 Freq: Status: Active Protocol: Document 01/22/25 16:02 LISA (Rec: 01/22/25 16:23 LISA [id number]) E-signed By Nevin Roman PT Lower Extremity Functional Index Activities Today, do you or would you have any difficulty at all with: a.Any of your usual work, housework or Quite a bit of difficulty school activities b. Your usual hobbies, recreational or Extreme difficulty or unable sporting activities to perform activity c. Getting into or out of the bath Extreme difficulty or unable to perform activity d. Walking between rooms A little bit of difficulty e. Putting on your shoes or socks A little bit of difficulty f. Squatting Extreme difficulty or unable to perform activity g. Lifting an object, like a bag of A little bit of difficulty groceries from the floor h. Performing light activities around A little bit of difficulty your home i. Performing heavy activities around Extreme difficulty or unable your home to perform activity j. Getting into or out of a car Moderate difficulty k. Walking 2 blocks Quite a bit of difficulty l. Walking a mile Extreme difficulty or unable to perform activity m. Going up or down 10 stairs (about 1 Quite a bit of difficulty flight of stairs) n. Standing for 1 hour Quite a bit of difficulty o. Sitting for 1 hour No difficulty p. Running on even ground Extreme difficulty or unable to perform activity q. Running on uneven ground Extreme difficulty or unable to perform activity r. Making sharp turns while running fast Extreme difficulty or unable to perform activity s. Hopping Extreme difficulty or unable to perform activity t. Rolling over in bed A little bit of difficulty LEFI Score Lower Extremity Functional Index Score 25 Rehab Re-assessment Subjective Subjective Pt reports he feels 20% improved since starting PT. Pt denies issues with his L knee . Pt reports continued bilateral foot pain rated 6/10 at worst on VAS. Pt reports pain is mostly in his heels when he walks but also has sun burn sensations and hypersensitivity to the dorsal aspect of his feet. Pt reports he has been wearing diabetic shoes which have helped with pain while walking . Pt states he no longer requires an AD for ambulation unless he is walking on uneven or slippery terrain which he then uses a SPC for balance. Pt denies recent falls. Objective Objective Notes Gait: wide SAMANTHA without AD Sensation: continued hypersensitivity to light touch sensation of bilateral feet L ankle AROM: 10 DF, 30 PF, 20 Inversion, 15 eversion L ankle MMT: PF 4/5, DF 4/5, Inv 5/5, Ev 5/5 R ankle AROM: 8 DF, 35 PF, 22 inversion, 15 eversion R ankle MMT: PF 4/5, DF 4/5, Inv 5/5, Ev 5/5 Assessment Assessment Notes Pt has attended only 2 PT treatment sessions since his initial evaluation performed on 12/20/24; however, reports compliance with HEP. Pt demonstrated slight improvement in LEFS score, gait and ankle AROM this date. Pt continues to report pain, altered sensation of bilateral feet and altered balance following hospitalization for rhabdomyolysis. Overall, the pt would continue to benefit from skilled PT to further improve BLE strength, gait, balance and functional activity tolerance to decrease fall risk and improve QOL. Patient goals met ST/3 LT/8 Goals Not Met ROM, stairs, squatting, LEFS, balance Revised Goals n/a Plan Plan Continue POC. Treat for polyneuropathy (ICD-10 code G62.9) Frequency of Therapy 2x/week Duration of therapy 4 more weeks Time and Billing Re-Eval Time 10 Re-Eval Billing Units 0 Charge for PT reassessment? No Charge for OT reassessment? No PHYSICIAN CERTIFICATION: I certify the specified therapy services for Gera Ruth are required, authorized, and reviewed every 30 days.
== END 2025-01-22 23:59 | disposition home or self-care (01) ==
LOC: PT 15:00
PROVIDERS: PCP Family Medicine; Visit Provider Family Medicine
DX: G62.9 Polyneuropathy, unspecified (principal)
CPT/HCPCS: 97112

== ENCOUNTER 2025-01-28 13:33 | Outpatient (RCR) | payer MEDICAID, SELFPAY ==
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
== END 2025-01-28 23:59 | disposition home or self-care (01) ==
LOC: OT 13:33
PROVIDERS: Visit Provider Family Medicine
DX: G62.9 Polyneuropathy, unspecified (principal)
CPT/HCPCS: 97166

== ENCOUNTER 2025-02-19 15:00 | Outpatient (RCR) | payer MEDICAID, SELFPAY ==
--- NOTE | 2025-02-19 16:16 | HMH.RHREAS ---
Rehab Reassessment Rehab OP Re-assessment Start: 01/28/25 14:07 Freq: Status: Active Protocol: Document 02/19/25 15:04 LISA (Rec: 02/19/25 16:16 LISA [id number]) E-signed By Nevin Roman PT Lower Extremity Functional Index Activities Today, do you or would you have any difficulty at all with: a.Any of your usual Quite a bit of difficulty work, housework or school activities b. Your usual Extreme difficulty or unable to perform activity hobbies, recreational or sporting activities c. Getting into or Extreme difficulty or unable to perform activity out of the bath d. Walking between Moderate difficulty rooms e. Putting on your A little bit of difficulty shoes or socks f. Squatting A little bit of difficulty g. Lifting an object Moderate difficulty , like a bag of groceries from the floor h. Performing light Moderate difficulty activities around your home i. Performing heavy Quite a bit of difficulty activities around your home j. Getting into or Quite a bit of difficulty out of a car k. Walking 2 blocks Extreme difficulty or unable to perform activity l. Walking a mile Extreme difficulty or unable to perform activity m. Going up or down Quite a bit of difficulty 10 stairs (about 1 flight of stairs) n. Standing for 1 Quite a bit of difficulty hour o. Sitting for 1 Extreme difficulty or unable to perform activity hour p. Running on even Extreme difficulty or unable to perform activity ground q. Running on uneven Extreme difficulty or unable to perform activity ground r. Making sharp Extreme difficulty or unable to perform activity turns while running fast s. Hopping Extreme difficulty or unable to perform activity t. Rolling over in A little bit of difficulty bed LEFI Score Lower Extremity 20 Functional Index Score Rehab Re-assessment Subjective Subjective Pt reports he feels 40-60% improved since starting PT. Pt reports he feels that his sensation in his feet is improving, but since sensation has improved pain has worsened. Pt reports 6/10 pain at worst within the past week. Pt reports dull ache of the bottom of the feet and a sunburn sensation of the top of his feet. Pt reports he has been prescribed Gabapentin for nerve pain but sometimes forgets to take it. Pt reports he feels that his balance has improved overall. Pt reports he does not require an AD for ambulation unless he is walking on slippery, muddy ground. Pt reports he was supposed to see his PCP yesterday but missed his appointment, states he plans on rescheduling that appointment soon. Objective Objective Notes Sensation: altered light touch sensation of the lateral and plantar surfaces of B feet Gait: proper gait mechanics without AD Balance: tandem stance unstable surface EO x30 B without LOB Stairs: able to traverse reciprocally without LOB L ankle AROM: 15 DF, 40 PF, 25 Inv, 15 Ev R ankle AROM: 17 DF, 45 PF, 25 Inv, 15 Ev L ankle MMT: 5/5 grossly R ankle MMT: 4+/5 grossly Assessment Progress Assessment Progressing as Expected Assessment Notes Pt has attended 9 PT treatment sessions consisting of aerobic exercise, LE stretching/strengthening, balance/ proprioception and gait training with good tolerance. Pt demonstrated improved gait, balance, functional activity performance (stairs & squats), ankle AROM, and ankle strength this date compared to the initial evaluation. Overall the pt met most PT goals and is appropriate to discharge to independent HEP at this time. Patient goals met ST/3 LT/8 Goals Not Met LEF score Revised Goals n/a Plan Plan D/c to I HEP Time and Billing Re-Eval Time 12 Re-Eval Billing 0 Units Charge for PT No reassessment? Charge for OT No reassessment? PHYSICIAN CERTIFICATION: I certify the specified therapy services for Gera Ruth are required, authorized, and reviewed every 30 days.
== END 2025-02-19 23:59 | disposition home or self-care (01) ==
LOC: PT 15:00
PROVIDERS: PCP Family Medicine; Visit Provider Family Medicine
DX: G62.9 Polyneuropathy, unspecified (principal)
CPT/HCPCS: 97110; 97112; 97530

== ENCOUNTER 2025-03-29 15:51 | Outpatient (CLI) | payer MEDICAID, SELFPAY ==
[2025-03-29 19:46] LABS: Hematocrit 36.6 % (42.0-52.0); Hemoglobin 12.6 g/dL (14.1-18.0); Immature Granulocytes % 0.3 %; Mean Corpuscular HGB Conc 34.4 g/dL (31.8-35.4); Mean Corpuscular Hemoglobin 32.3 pg (27.0-31.2); Mean Corpuscular Volume 93.8 fl (80-94); Nucleated Red Blood Cells % 0 %; Platelet Count 151 K/mm3 (142-424); Red Blood Count 3.90 M/mm3 (4.60-6.20); Red Cell Distribution Width-SD 42.2 fL; White Blood Count 6.2 K/mm3 (4.8-10.8)
[2025-03-29 19:58] LABS: Alanine Aminotransferase 25 U/L (12-78); Albumin Level 4.9 g/dl (3.5-5.0); Albumin/Globulin Ratio 1.9 (1.1-1.8); Alkaline Phosphatase 82 U/L (38-126); Anion Gap 14.4 mEq/L (5-15); Aspartate Amino Transferase 36 U/L (17-59); Blood Urea Nitrogen 14 mg/dl (9-20); Calcium 9.8 mg/dl (8.4-10.2); Carbon Dioxide 24 mmol/L (22.0-30.0); Chloride 105 mmol/L (98-107); Creatinine,Serum 0.70 mg/dl (0.66-1.25); Estimated Glomerular Filt Rate 123 ml/min (>60); GFR (African American) 149 ML/MIN (>60); Globulin 2.6 g/dL (1.3-3.2); Glucose 95 mg/dl (74-100); Potassium 4.4 mmoL/L (3.5-5.1); Sodium 139 mmol/L (136-145); Total Protein,Serum 7.5 g/dl (6.3-8.2)
[2025-03-29 20:03] LABS: Bilirubin,Total < 0.1 mg/dl (0.2-1.3)
[2025-03-29 20:25] LABS: Thyroid Stimulating Hormone 1.09 uIU/mL (0.465-4.68)
[2025-03-29 20:37] LABS: Free T4 (Free Thyroxine) 0.86 ng/dl (0.78-2.19)
[2025-03-29 20:44] LABS: Vitamin B12 459 pg/mL (239-931)
[2025-03-29 21:31] LABS: Folate > 20.00 ng/mL
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
--- OUTSIDE RECORDS SUMMARY | 2025-03-30 10:04 | XMS_ITS | Encounter Summary ---
Author Organization Healthcare Address [address] [place] [address] Care Team Providers Care Lap Grinder Name Role Phone Nasir Leon MD Primary Care Provider +1- [phone] Daphne Patel LPN Unavailable Unavaila ble Aye Phillips Unavailable Unavailable Encounter Details Date Type Department Care Team (Late st Contact Info) Description 11/19/2024 Lab Requisition [facility] [address] [place] [address] Dominic Arita MD [address] [facility] [address] [place] [address] Encounter for general adult medical examination without abnormal findings Social History Tobacco Use Types Packs/Day Years Used Date Smoking Tobacco: Never Passive Smoke Exposure: Never Smokeless Tobacco: Never Alcohol Use Standard Drinks/Week Comments Yes 0 (1 standard drink = 0.6 oz pur e alcohol) 1/2 gallon vodka daily Humiliation, Afraid, Rape, and Kick questionnair e Answer Date Recorded Within the last year, have y ou been afraid of your partner or ex-partner? No 11/21/2024 Within the last year, have y ou been humiliated or emotionally abused in other ways by your partner or ex-partner? No Within the last year, have y ou been kicked, hit, slapped, or otherwise physically hurt by your partner or ex-partner? No 11/21/2024 Within the last year, have y ou been raped or forced to have any kind of sexual activity by your partner or ex-partner? No 11/21/2024 Social Connection and Isolation Panel Answer Date Recorded In a typical week, how many times do you talk on the phone with family, friends, or neighbors? More than three times a week 05/08/2024 How often do you get togethe r with friends or relatives? More than three times a week 05/08/2024 How often do you attend chur ch or scientologist services? Never 05/08/2024 Do you belong to any clubs o r organizations such as christian groups, unions, fraternal or athletic groups, or [...] Recorded Patient Health Questionnaire-2 Score 0 05/02/2024 [facility] - Occupational Stress Questionnaire Answer Date Recorded [...] have money to get more. Sometimes true PRAPARE - Transportation Answer Date Re corded In the past 12 months, has l ack of transportation kept you from medical appointments or from getting medications? Yes 10/28 In the past 12 months, has l ack of transportation kept you from meetings, work, or from getting things needed for daily living? Yes 11/21/2024 Housing Stability Vital Sign Answer Jose e [...] place to sleep or slept in a care home (including now)? Yes 05/08/2024 Housing Stability Vital Sign Answer Jose e Recorded In the last 12 months, was t here a time when you were not able to pay the mortgage or rent on time? Yes 11/21/2024 In the past 12 months, how m any times have you moved where you were living? 1 11/21/2024 At any time in the past 12 m [facility], were you homeless or living in a care home (including now)? Yes 11/21/2024 CAGE ASSESSMENT Answer Date Recorded Cage unable [...] drink first t yuni in the morning (EYE-CAMPUS RECEPTIONIST) to steady your nerves or to get rid of a hangover? 1 04/15/2024 CAGE Questionnaire Score 2 024 Utilities Answer Date Recorded In the past 12 months has th e [employer], gas, oil, or water company threatened to shut off services in your home? No 11/21/2024 Sex and Gender Information Value Date Recorded Sex Assigned at Not on file Legal Sex Male 3:30 PM EDT Gender Identity Not on file Sexual Orientation Straight 04/15/2024 8: 16 PM EDT documented as of this encounter Functional Status * Calculated C-SSRS Risk Score (Lifetime/Recent) Answer Date of Assessment Author No Risk Indicated 11/22/2024 8:00 PM EDT Cindy Sharma RN * Question Answer Date of Assessment Author 1. Wish to be (Past 1 Month) No 025 8:00 PM EDT Cindy Sharma RN 2. Non-Specific Active Suici aung Thoughts (Past 1 Month) No 11/22/2024 8:00 PM EDT Cindy Sharma RN 6. Suicidal Behavior (Lifetime) No 8:00 PM EDT Cindy Sharma RN documented as of this encounter Plan of Treatment Upcoming Encounters Date Type Department Care Team (Late st Contact Info) Description 04/10/2025 9:10 AM EDT Office Visit [facility] Orthopaedic Surgery & Sports Medicine [address], [address] [place] [address] Rubio Belcher MD [address] [place] [address] documented as of this encounter Procedures Procedure Name Priority Date/Time Associated Diagnosis Comments MULTI DRUG RESISTANCE TEST Routine 11/19/2024 3:58 PM EDT Encounter for general adult medical examination without abnormal findings documented in this encounter Results * Multi Drug Resistance Test (11/19/2024 3:58 PM EDT) Culture No growth at day 1 11/20/2024 2:29 PM EDT [facility] Swab (Nares and Tere Rectal) 11/19/2024 3:58 PM EDT 11/19/2024 4:58 PM EDT us Dominic Arita MD LAB MICROBIOLOGY - GEN ERAL ORDERABLES Final Result [facility] [address] [place] [address] documented in this encounter Visit Diagnoses Diagnosis Encounter for general adult medical examination without abnormal findings documented in this encounter Additional Health Concerns Assessment Noted Time A fall risk assessment has been complete d for the patient 07/11/2024 1:17 PM EST A Body Mass Index follow-up plan has been documented for the patient 11/29/2024 2:38 PM EDT documented as of this encounter Care Teams Lap Grinder Relationship Specialty Start Date End Date Nasir Leon MD [address] [place] [address] PCP - General 07/11/24 Daphne Patel LPN [facility] TCM Nurse 11/30/2412/30/24 Aye Phillips Community Health Worker 12/03/24 12/28/24 documented as of this encounter
--- OUTSIDE RECORDS SUMMARY | 2025-03-30 10:04 | XMS_ITS | Clinical Summary ---
Author Organization [facility] Address [address] [place] [address] Care Team Providers Care Show Card Writer Name Role Phone Provider, No Known Primary Care Provider Unavail able Allergies No known active allergies Medications * This document contains information received from the source organization and may not represent a complete record from that organization. multivitamin with minerals tablet tablet Take 1 tablet by mouth Daily. Active Social History Tobacco Use Types Packs/Day Years Used Date Smoking Tobacco: Former Smokeless Tobacco: Former Alcohol Use Standard Drinks/Week Comments Yes 0 (1 standard drink = 0.6 oz pur e alcohol) 4-8 shots of vodka daily AUDIT-C Answer Date Recorded Q1: How often do you have a drink containing alcohol? 4 or more times a week 01/13/2024 Q2: How many drinks containi ng alcohol do you have on a typical day when you are drinking? 5 or 6 Q3: How often do you have si x or more drinks on one occasion? Daily or almost daily 01/13/2024 Abuse Screen Answer Date Recorded Feels Unsafe at Home or Work/School no 01/13/2024 Feels Threatened by Someone no 12/27 Does Anyone Try to Keep You From Having Contact with Others or Doing Things Outside Your Home? no 01/13/2024 Physical Signs of Abuse Present no 01/13/2024 Housing Stability Answer Date Recorded Current Living Arrangements home 12/27 Potentially Unsafe Housing Conditions Not on tiny e 01/13/2024 Family and Community Support Answer Jose e Recorded Help with Day-to-Day Activities Not on file 06/05/2023 Lonely or Isolated Not on file 06/05/2023 Employment Answer Date Recorded Do you want help finding or keeping work or a vannesa b? Not on file 06/05/2023 Disabilities Answer Date Recorded Concentrating, Remembering, or Making Decisions Difficulty Not on file 06/05/2023 Doing Errands Independently Difficulty Not on fi le 06/05/2023 Education Answer Date Recorded Help with school or training? Not on file Preferred Language Not on file 06/05/2023 Sex and Gender Information Value Date Recorded Sex Assigned at Not on file Legal Sex Male 10:45 AM EDT Gender Identity Not on file Sexual Orientation Not on file Last Filed Vital Signs Vital Sign Reading Time Taken Comments Blood Pressure 137/91 01/13/2024 1:10 AM EDT Pulse 67 01/13/2024 1:10 AM EDT Temperature 36.9 C (98.5 F) 2024 11:23 PM EDT Respiratory Rate 18 01/13/2024 1:10 AM EDT Oxygen Saturation 100% 01/13/2024 1:10 AM EDT Inhaled Oxygen Concentration - - Weight 120 kg (264 lb) 2024 11:23 PM EDT Height 182.9 cm (6') 2024 11:23 PM EDT Body Mass Index 35.8 2024 11:23 PM EDT Plan of Treatment Health Maintenance Due Date Last Done Comments TDAP/TD VACCINES (1 - Tdap) 2001 ANNUAL PHYSICAL 01/05/2024 COVID-19 Vaccine ( - 2023-2 5 season) 2024 INFLUENZA VACCINE 05/29/2025 HEPATITIS C SCREENING Completed 04/14/2024 Pneumococcal Vaccine 0-49 Aged Out No longer eligible based on patient's age to complete this topic Care Teams Show Card Writer Relationship Specialty Start Date End Date Provider, No Known [facility] [place] [address] PCP - General 01/06/21
== END 2025-03-29 23:59 | disposition home or self-care (01) ==
LOC: LAB.DROPOF 03-30 10:02
PROVIDERS: PCP Family Medicine; Visit Provider Family Medicine
DX: G62.9 Polyneuropathy, unspecified (principal); I10 Essential (primary) hypertension; R63.5 Abnormal weight gain
CPT/HCPCS: 80053; 82607; 82746; 84439; 84443; 85025

== ENCOUNTER 2025-08-09 09:37 | Outpatient (CLI) | payer MEDICAID, SELFPAY ==
[2025-08-09 14:41] LABS: Hematocrit 40.2 % (42.0-52.0); Hemoglobin 13.8 g/dL (14.1-18.0); Immature Granulocytes % 0.2 %; Mean Corpuscular HGB Conc 34.3 g/dL (31.8-35.4); Mean Corpuscular Hemoglobin 30.3 pg (27.0-31.2); Mean Corpuscular Volume 88.2 fl (80-94); Nucleated Red Blood Cells % 0 %; Platelet Count 174 K/mm3 (142-424); Red Blood Count 4.56 M/mm3 (4.60-6.20); Red Cell Distribution Width-SD 39.4 fL; White Blood Count 6.3 K/mm3 (4.8-10.8)
== END 2025-08-09 23:59 | disposition home or self-care (01) ==
LOC: LAB.DROPOF 08-12 09:38
PROVIDERS: PCP Family Medicine; Visit Provider Family Medicine
DX: D64.9 Anemia, unspecified (principal)
CPT/HCPCS: 85025